=== PATIENT | female | born 2000 | race Two or more races ===

== ENCOUNTER 2024-01-23 14:39 | Emergency (ER) | payer OTHER ==
[~2024-01-23] VITALS: Ht 157.5 cm; Wt 65.8 kg
[2024-01-23] MEDS ORDERED: ATORVASTATIN CA20 MG PO (15:26)
[2024-01-23 18:43] LABS: HEMATOCRIT 35.4 % (36.0-45.00); HEMOGLOBIN 11.4 g/dL (12.0-15.00); MEAN CELL VOLUME 85.3 fL (80.00-100.00); MEAN CORPUSCULAR HEMOGLOBIN 27.6 pg (27.00-32.0); MEAN CORPUSCULAR HGB CONC 32.4 g/dl (32.0-36.0); PLATELET COUNT 359 K/uL (150-450); RED BLOOD COUNT 4.15 M/uL (4.00-6.00); RED CELL DISTRIBUTION WIDTH 13.9 % (11.5-14.5)
[2024-01-23 18:54] LABS: PH,URINE 6.5 (5.0-8.0); URINE APPEARANCE Cloudy; URINE BILIRRUBIN Negative (NEGATIVE); URINE BLOOD Large; URINE COLOR Yellow; URINE GLUCOSE Negative (NEGATIVE); URINE KETONE Negative (NEGATIVE); URINE LEUKOCYTE Negative; URINE NITRATE Negative; URINE PROTEIN Negative (NEGATIVE); URINE UROBILINOGEN 0.2 E.U./dl
[2024-01-23 18:55] LABS: URINE BACTERIA 2446.8 uL (0.0-1933); URINE EPITHELIAL CELLS 96.9 uL (0.0-38.8); URINE RBC 4.4 uL (0.0-20.8); URINE WBC 25.3 uL (0.0-23.2)
[2024-01-23 19:23] LABS: CALCIUM 9.8 mg/dL (8.5-10.1); CREATININE SERUM 0.64 mg/dL (0.55-1.02); GFR 117.14; POTASSIUM 3.78 mEq/L (3.5-5.1)
[2024-01-23 19:46] LABS: URINE CAST 0.15 uL (0.0-1.40)
== END 2024-01-23 22:46 | disposition home or self-care (01) ==
LOC: ER 14:41
PROVIDERS: General Practice
DX: R10.2 Pelvic and perineal pain (principal); N83.201 Unspecified ovarian cyst, right side